=== PATIENT | female | born 1985 | race Two or more races ===

== ENCOUNTER 2021-12-28 09:16 | Emergency (ER) | payer BC ==
[~2021-12-28] VITALS: Ht 180.3 cm; Wt 52.2 kg
--- NOTE | 2021-12-28 09:26 | NUR ---
BIB FRIEND C/O CHEST PRESSURE SINCE THIS FRIDAY AND RADIATES TO THROAT AND UPPER ABDOMEN AND HAD A STOMACH FLU ON FRIDAY. PT STATED HER PAIN LEVEL IS 6-7/10 ON PS. VITAL SIGNS ARE STABLE, NO RESPIRATORY DISTRESS NOTED. AWAITING MD ORDERS.
--- NOTE | 2021-12-28 09:40 | NUR ---
Xray in progress at [facility].
[2021-12-28 09:47] LABS: BASOPHILS % (AUTO) 0.3 % (0.0-2.0); EOSINOPHILS % (AUTO) 0.1 % (0.0-6.0); HEMATOCRIT 37 % (33-45); HEMOGLOBIN 12.6 g/dL (11.5-14.8); LYMPHOCYTES % (AUTO) 13.6 % (20.0-44.0); MEAN CORPUSCULAR HGB CONC 34 g/dl (31.0-36.0); MEAN CORPUSCULAR VOLUME 93 fL (82-100); MONOCYTES # (AUTO) 0.5 K/uL (0.1-1.30); MONOCYTES % (AUTO) 7.7 % (2.0-12.0); NEUTROPHILS # (AUTO) 5.5 K/uL (1.8-8.9); NEUTROPHILS % (AUTO) 78.3 % (43.0-81.0); PLATELET COUNT (AUTO) 178 K/uL (150-450); RED BLOOD CELL COUNT(AUTO) 3.96 MIL/uL (4.0-5.2)
[2021-12-28 10:01] LABS: ALANINE AMINOTRANSFERASE 15 U/L (12-78); ALBUMIN 3.4 g/dL (3.4-5.0); ALKALINE PHOSPHATASE 39 U/L (46-116); ASPARTATE AMINOTRANSFERASE 23 U/L (15-37); BILIRUBIN,DIRECT 0.1 mg/dL (0.0-0.2); BILIRUBIN,TOTAL 0.2 mg/dL (0.2-1.0); CALCIUM, SERUM 8.7 mg/dL (8.5-10.1); CARBON DIOXIDE 27 mmol/L (21-32); CHLORIDE 105 mmol/L (98-107); CREATININE 0.8 mg/dL (0.6-1.3); GLUCOSE 104 mg/dL (74-106); POTASSIUM 3.5 mmol/L (3.5-5.1); SODIUM SERUM 140 mmol/L (136-145); TOTAL PROTEIN, SERUM 6.9 g/dL (6.4-8.2); UREA NITROGEN, BLOOD 5 mg/dL (7-18)
--- NOTE | 2021-12-28 10:37 | NUR ---
URINE COLLECTED AND SENT TO LAB
[2021-12-28] MEDS ORDERED: DIATR MEGLU/DIATRIZOATE SODIUM 30 ML BOTTLE (GASTROGRAPHIN) ONE (11:10)
[2021-12-28] MEDS ORDERED: MAG355OR18 PO (12:25)
[2021-12-28] MEDS ORDERED: LIDOCAINE VISCOUS 2% UD 15 ML UDC ONE (12:29)
[2021-12-28] MEDS ORDERED: MAG HYDROX/AL HYDROX/SIMETH 30 ML UDC ONE (12:29)
[2021-12-28] MEDS ORDERED: MAG HYDROX/AL HYDROX/SIMETH 30 ML UDC PO ONE (12:30)
[2021-12-28] MEDS ORDERED: LIDOCAINE VISCOUS 2% UD 15 ML UDC MM ONE (12:30)
[2021-12-28 12:43] VITALS: BP 112/66
--- NOTE | 2021-12-28 12:43 | NUR ---
IV removed. Catheter intact and site benign. Pressure and 4x4 applied to site. No bleeding noted.Patient discharged to home in stable condition. Written and verbal after care instructions given. Patient verbalizes understanding of instruction.
== END 2021-12-28 12:44 | disposition home or self-care (01) ==
LOC: ER 09:19
DX: K20.90 Esophagitis, unspecified without bleeding (principal); R07.89 Other chest pain
CPT/HCPCS: 36415; 71045; 71250; 80048; 80076; 84484; 84703; 85025; 93005; 99285; Q9963